=== PATIENT | female | born 1965 | race Caucasian/White ===

== ENCOUNTER → 2024-02-14 16:32 | Outpatient (REF) | payer MEDICARE, SELFPAY | LOC: RAD 16:32 | PROVIDERS: ATTENDING PHYSICIAN Internal Medicine Critical Care Medicine | DX: R06.02 Shortness of breath (principal) | CPT/HCPCS: 71046 ==

== ENCOUNTER → 2024-05-06 07:56 | Outpatient (REF) | payer MEDICARE, SELFPAY | LOC: WDC 07:56 | PROVIDERS: ATTENDING PHYSICIAN Nurse Practitioner Adult Health | DX: Z12.31 Encounter for screening mammogram for malignant neoplasm of breast (principal) | CPT/HCPCS: 77063; 77067 ==

== ENCOUNTER → 2024-05-08 09:23 | Outpatient (REF) | payer MEDICARE, SELFPAY ==
[2024-05-08 10:43] LABS: % Basophils 0.8 % (0-2); % Eosinophils 2.6 % (0-6); % Lymphocytes 36.3 % (20.5-51.1); % Monocytes 6.8 % (1.7-9.3); % Neutrophils 53.5 % (42.2-75.2); Absolute Eosinophils 0.1 10^3/uL (0-0.7); Absolute Lymphocytes 1.8 10^3/uL (1.2-3.4); Absolute Monocytes 0.3 10^3/uL (0.1-0.6); Absolute Neutrophils 2.7 10^3/uL (1.4-6.5); Hematocrit 38.4 % (37.0-47.0); Hemoglobin 12.7 g/dL (12.0-16.0); Mean Corp Hgb Conc. 33.1 g/dL (33.0-37.0); Mean Corpuscular Hgb 31.1 pg (27.0-31.0); Mean Corpuscular Volume 93.9 fL (81.0-99.0); Mean Platelet Volume 9.4 fL (7.4-10.4); Nucleated Red Blood Cells % 0 %; Platelet Count 277 10^3/uL (130-400); Red Blood Cell Count 4.09 10^6/uL (4.20-5.40); Red Cell Dist. Width 13.1 % (11.5-14.5)
[2024-05-08 11:07] LABS: Glycohemoglobin (HgbA1c) 5.2 % (4.0-5.6)
[2024-05-08 11:23] LABS: ALT (SGPT) 20 U/L (0-35); AST (SGOT) 26 U/L (14-36); Alkaline Phosphatase 58 U/L (38-126); Blood Urea Nitrogen 16 mg/dl (7-17); Calcium 10.1 mg/dl (8.4-10.2); Carbon Dioxide 31 mmol/L (22-30); Chloride 105 mmol/L (98-107); Glucose 86 mg/dl (70-99); HDL Cholesterol 81 mg/dl; LDL Cholesterol, Calculated 127 mg/dl; Magnesium 2.1 mg/dl (1.6-2.3); Potassium 4.3 mmol/L (3.5-5.1); Sodium 139 mmol/L (135-145); Total Bilirubin 0.7 mg/dl (0.2-1.3); Total Cholesterol 231 mg/dl (50-199); Total Protein 6.6 g/dl (6.3-8.2); Triglyceride 115 mg/dl (10-149); Very Low Density Lipoprotein 23 mg/dl (0-30); eGFR > 60.00
[2024-05-08 11:48] LABS: TSH 2.28 uIU/ml (0.47-4.68)
[2024-05-08 11:52] LABS: Ferritin 70.3 ng/ml (11.1-264.0)
[2024-05-08 12:07] LABS: Vitamin B12 935 pg/ml (239-931)
[2024-05-08 12:15] LABS: Vitamin D, 25-OH*** 49.1 ng/mL (30-80)
== END ==
LOC: RAD 09:23
PROVIDERS: ATTENDING PHYSICIAN Internal Medicine; FAMILY PHYSICIAN Nurse Practitioner Adult Health
DX: K44.9 Diaphragmatic hernia without obstruction or gangrene (principal); E88.9 Metabolic disorder, unspecified; E88.810 Metabolic syndrome; E78.41 Elevated Lipoprotein(a); D64.89 Other specified anemias; E03.9 Hypothyroidism, unspecified; E55.9 Vitamin D deficiency, unspecified; D51.0 Vitamin B12 deficiency anemia due to intrinsic factor deficiency; E83.42 Hypomagnesemia; R73.9 Hyperglycemia, unspecified; N39.0 Urinary tract infection, site not specified; Z79.899 Other long term (current) drug therapy
CPT/HCPCS: 36415; 74246; 74248; 80053; 80061; 82306; 82607; 82728; 83036; 83735; 84443; 85025

== ENCOUNTER → 2024-06-29 12:29 | Outpatient (REF) | payer MEDICARE, SELFPAY ==
[2024-06-29 13:53] LABS: Hematocrit 39.1 % (37.0-47.0); Hemoglobin 13.1 g/dL (12.0-16.0); Mean Corp Hgb Conc. 33.5 g/dL (33.0-37.0); Mean Corpuscular Hgb 31.5 pg (27.0-31.0); Mean Platelet Volume 9.3 fL (7.4-10.4); Platelet Count 302 10^3/uL (130-400); Red Blood Cell Count 4.16 10^6/uL (4.20-5.40); Red Cell Dist. Width 12.5 % (11.5-14.5); Urine Albumin Negative (Neg - Trace); Urine Bilirubin Negative (Negative); Urine Character Clear (Clear); Urine Color Yellow; Urine Glucose Negative (Negative); Urine Ketone Negative (Negative); Urine Leukocyte Negative (Negative); Urine Nitrite Negative (Negative); Urine Occult Blood Negative (Negative); Urine Specific Gravity 1.005 (<1.030); Urine Urobilinogen Negative (Neg - 1+); White Blood Cell Count 5.6 10^3/uL (4.8-10.8)
[2024-06-29 14:11] LABS: Iron 130 ug/dl (37-170)
[2024-06-29 14:21] LABS: Percent Saturation 37 % (20-50); Total Iron Binding Capacity 349 ug/dl (265-497)
[2024-06-29 14:43] LABS: Ferritin 72.1 ng/ml (11.1-264.0)
== END ==
LOC: REG 12:29
PROVIDERS: ATTENDING PHYSICIAN Internal Medicine Gastroenterology; FAMILY PHYSICIAN Nurse Practitioner Adult Health
DX: K62.5 Hemorrhage of anus and rectum (principal); E03.9 Hypothyroidism, unspecified; E88.9 Metabolic disorder, unspecified; E88.810 Metabolic syndrome; E78.41 Elevated Lipoprotein(a); D64.89 Other specified anemias; E55.9 Vitamin D deficiency, unspecified; D51.0 Vitamin B12 deficiency anemia due to intrinsic factor deficiency; E83.42 Hypomagnesemia; R73.9 Hyperglycemia, unspecified
CPT/HCPCS: 36415; 81003; 82728; 83540; 83550; 85027

== ENCOUNTER 2024-09-08 06:18 | Day surgery (SDC) | payer MEDICARE, SELFPAY ==
[2024-09-08 11:36] VITALS: BMI 28.8
[2024-09-08 11:40] VITALS: BP 115/71
[2024-09-08 14:10] VITALS: BP 101/84
[2024-09-08 14:16] VITALS: BP 123/109
[2024-09-08 14:18] VITALS: BP 111/65
[2024-09-08 14:30] VITALS: BP 93/46
[2024-09-08 14:32] VITALS: BP 110/59
== END 2024-09-08 14:40 | disposition home or self-care (01) ==
LOC: SDS 06:18
PROVIDERS: ATTENDING PHYSICIAN Internal Medicine Gastroenterology
DX: D12.2 Benign neoplasm of ascending colon (principal); K57.30 Diverticulosis of large intestine without perforation or abscess without bleeding; K64.8 Other hemorrhoids; R19.4 Change in bowel habit; Q40.3 Congenital malformation of stomach, unspecified; R12 Heartburn; R13.10 Dysphagia, unspecified
CPT/HCPCS: 45380; 43239; 88305; 88342